=== PATIENT | female | born 1985 ===

== ENCOUNTER 2018-01-25 08:28 | Inpatient (IN) | payer MEDICAID, OTHER ==
[2018-01-25] MEDS ORDERED: Sodium Chloride 0.9% 1,000 ML IV STA (09:25)
--- NOTE | 2018-01-25 09:40 | ED PDOC ---
HPI: Abdomen Time Seen by Provider: 01/25/18 08:52 Chief Complaint (Nursing): Abdominal Pain Chief Complaint (Provider): Abdominal Pain History Per: Patient History/Exam Limitations: no limitations Onset/Duration Of Symptoms: Days (x2) Current Symptoms Are (Timing): Still Present Additional Complaint(s): 32 year old female presents to the ED with a complaint of abdominal pain associated with fever, burning urination and 2 episodes of vomiting ongoing for 2 days. She denies any hematuria or further medical complaints. PMD: none provided Past Medical History Reviewed: Historical Data, Nursing Documentation, Vital Signs Vital Signs: Last Vital Signs Temp 101.0 F H 01/25/18 12:06 Pulse 114 H 01/25/18 08:37 Resp 20 01/25/18 08:37 BP 125/80 01/25/18 08:37 Pulse Ox 98 01/25/18 11:59 - Medical History PMH: No Chronic Diseases - Surgical History Surgical History: (x3) - Family History Family History: States: Unknown Family Hx - Social History Current smoker - smoking cessation education provided: No Alcohol: None Drugs: Denies - Immunization History Hx Tetanus Toxoid Vaccination: No Hx Influenza Vaccination: No Hx Pneumococcal Vaccination: No - Home Medications Home Medications: Ambulatory Orders Medication Instructions Recorded No Known Home Med 01/25/18 - Allergies Allergies/Adverse Reactions: Allergies Allergy/AdvReac Type Severity Reaction Status Date / Time No Known Allergies Allergy Verified 01/25/18 08:37 Review of Systems ROS Statement: Except As Marked, All Systems Reviewed And Found Negative Constitutional: Positive for: Fever Gastrointestinal: Positive for: Vomiting (x2), Abdominal Pain Genitourinary Female: Positive for: Dysuria (burning). Negative for: Hematuria Physical Exam - Reviewed Nursing Documentation Reviewed: Yes Vital Signs Reviewed: Yes - Physical Exam Appears: Positive for: No Acute Distress Head Exam: Positive for: ATRAUMATIC, NORMAL INSPECTION, NORMOCEPHALIC Skin: Positive for: Normal Color Eye Exam: Positive for: Normal appearance ENT: Positive for: Normal ENT Inspection Neck: Positive for: Normal Cardiovascular/Chest: Positive for: Chest Non Tender, Tachycardia (but regular) Respiratory: Positive for: Normal Breath Sounds. Negative for: Respiratory Distress Pulses-Radial (L): 2+ Pulses-Radial (R): 2+ Gastrointestinal/Abdominal: Positive for: Soft, Tenderness (diffuse; significant in RUQ) Back: Positive for: R CVA Tenderness. Negative for: L CVA Tenderness Extremity: Positive for: Normal ROM (upper/lower). Negative for: Pedal Edema ( bilateral), Calf Tenderness (bilateral) Neurologic/Psych: Positive for: Alert, port patrol officer II-XII (grossly intact), Oriented. Negative for: Motor/Sensory Deficits - Laboratory Results Result Diagrams: 01/25/18 09:53 01/25/18 09:53 - ECG O2 Sat by Pulse Oximetry: 98 (RA) Pulse Ox Interpretation: Normal Medical Decision Making Medical Decision Making: Initial Impression: Abdominal pain; Fever Differential Diagnosis: Biliary disease; UTI; R/O sepsis Initial Plan: * VBG * CMP * Lipase * Urine dipstick * CBC * Morphine 4mg IVP * NS 1,000ml IV per 1,000mls/hr * Tylenol 650mg PO * Blood culture * Urine C&S * UA * US ABD Time: 0900 --Urine: negative for active disease and . Time: 1132 --US ABD FINDINGS: LIVER: Measures 17.2 cm in length. Nonspecific mildly inhomogeneous echogenicity of the liver parenchyma is identified. No definite mass. No intrahepatic bile duct dilatation. GALLBLADDER: Cholelithiasis identified within the gallbladder lumen with moderate mural thickening and mild pericholecystic fluid collection associated. Clinically correlate for possible cholecystitis as there is also a positive sonographic Lara sign. COMMON BILE DUCT: Measures 6.6 mm. No stones. No dilatation. PANCREAS: The tail of the pancreas is obscured by overlying bowel gas with remainder unremarkable. RIGHT KIDNEY: Measures 11.9 cm in length. Normal echogenicity. No calculus, mass, or hydronephrosis. AORTA: No aneurysmal dilatation. IVC: Unremarkable. OTHER FINDINGS: None . IMPRESSION: Pattern suspicious for cholecystitis. Cholelithiasis is noted with pericholecystic fluid, mural thickening and angie sonographic Lara sign as discussed above. Further clinical correlation is advised. The common bile duct is mildly dilated at 6.6 mm but no choledocholithiasis is demonstrated as imaged. There is incomplete imaging of the pancreas. Time: 1142 --Patient will require hospital admission for acute cholecystitis. --Surgical consult ordered for Dr. Hidalgo. technical operations vice president made aware of case. --Upon provider reevaluation, patient is medically stable and agreeable with plans. Time: 1157 --Discussed case with Dr. Hidalgo whom recommends to admit patient to hospitalist and agrees with management. Scribe Attestation: Documented by Ruchi Auguste, acting as a scribe for Rivas Bower MD. Provider Scribe Attestation: All medical record entries made by the Scribe were at my direction and personally dictated by me. I have reviewed the chart and agree that the record accurately reflects my personal performance of the history, physical exam, medical decision making, and the department course for this patient. I have also personally directed, reviewed, and agree with the discharge instructions and disposition. Disposition - Clinical Impression Clinical Impression: Abdominal pain, Acute cholecystitis, Sepsis - Patient ED Disposition Is Patient to be Admitted: Yes Discussed With : Master Zamora Doctor Will See Patient In The: ED Counseled Patient/Family Regarding: Studies Performed, Diagnosis - Disposition Disposition Time: 11:40 Condition: FAIR - Pt Status Changed To: Hospital Disposition Of: Inpatient - Admit Certification Admit to Inpatient:: After my assessment, the patient will require hospitalization for at least two midnights. This is because of the severity of symptoms shown, intensity of services needed, and/or the medical risk in this patient being treated as an outpatient. - POA Present On Arrival: None
[2018-01-25 10:02] LABS: BASO % 0.3 % (0.0-2.0); LYMPH # 0.8 K/uL (1.0-4.3); LYMPH % 4.6 % (20.0-40.0); MEAN CELL VOLUME 85.3 fl (81.0-99.0); MEAN CORPUSCULAR HEMOGLOBIN 29.8 pg (27.0-31.0); MEAN PLATELET VOLUME 8.1 fl (7.2-11.7); MONO # 1.1 K/uL (0.0-0.8); MONO % 6.9 % (0.0-10.0); NEUT # 14.6 K/uL (1.8-7.0); NEUT % 88.2 % (50.0-75.0); PLATELET COUNT 293 K/uL (130-400); RBC 4.36 Mil/uL (3.80-5.20); RED CELL DISTRIBUTION WIDTH 14.3 % (11.5-14.5); WHITE BLOOD COUNT 16.6 K/uL (4.8-10.8)
[2018-01-25 10:03] LABS: VENOUS BLOOD GAS BASE EXCESS -0.2 mmol/L (0.0-2.0); VENOUS BLOOD GAS PCO2 41 mmHg (40-60); VENOUS BLOOD GAS PO2 40 mm/Hg (30-55); VENOUS BLOOD PH 7.39 (7.32-7.43)
[2018-01-25 10:17] LABS: ALB/GLOB RATIO 1.2 (1.0-2.1); ALBUMIN 4.4 g/dL (3.5-5.0); ALT/SGPT 45 U/L (9-52); AST/SGOT 48 U/L (14-36); BLOOD UREA NITROGEN 7 mg/dl (7-17); CALCIUM 9.1 mg/dL (8.4-10.2); GFR AFRICAN-AMERICAN > 60; GFR NON-AFRICAN AMERICAN > 60; LIPASE 28 U/L (23-300)
[2018-01-25 10:39] LABS: BANDS 5 % (0-2); LYMPHOCYTE 9 % (20-50); MONOCYTE 8 % (0-10); NEUTROPHIL 78 % (42-75); TOTAL CELLS COUNTED 100
[2018-01-25 10:41] LABS: PLATELET ESTIMATE NORMAL (NORMAL)
[2018-01-25 11:07] LABS: SQUAMOUS EPITHIAL 15 /hpf (0-5); URINE BACTERIA RARE (<OCC); URINE BILIRUBIN NEGATIVE (NEGATIVE); URINE BLOOD SMALL (NEGATIVE); URINE CLARITY CLOUDY (Clear); URINE COLOR YELLOW (YELLOW); URINE GLUCOSE (UA) NEG (Normal); URINE LEUKOCYTE ESTERASE NEG Leu/uL (Negative); URINE PROTEIN 30 mg/dL (NEGATIVE); URINE UROBILINOGEN 0.2-1.0 mg/dL (0.2-1.0)
[2018-01-25] MEDS ORDERED: Piperacillin/Tazobact 3.375 GM in Sodium Chloride 0.9% 100 ML IVPB STA (11:20)
--- NOTE | 2018-01-25 11:33 | US ---
Date of service: 01/25/2018 HISTORY: RUQ pain COMPARISON: None. TECHNIQUE: Sonographic evaluation of the right upper quadrant of the abdomen. FINDINGS: LIVER: Measures 17.2 cm in length. Nonspecific mildly inhomogeneous echogenicity of the liver parenchyma is identified. No definite mass. No intrahepatic bile duct dilatation. GALLBLADDER: Cholelithiasis identified within the gallbladder lumen with moderate mural thickening and mild pericholecystic fluid collection associated. Clinically correlate for possible cholecystitis as there is also a positive sonographic Lara sign. COMMON BILE DUCT: Measures 6.6 mm. No stones. No dilatation. PANCREAS: The tail of the pancreas is obscured by overlying bowel gas with remainder unremarkable. RIGHT KIDNEY: Measures 11.9 cm in length. Normal echogenicity. No calculus, mass, or hydronephrosis. AORTA: No aneurysmal dilatation. IVC: Unremarkable. OTHER FINDINGS: None . IMPRESSION: Pattern suspicious for cholecystitis. Cholelithiasis is noted with pericholecystic fluid, mural thickening and angie sonographic Lara sign as discussed above. Further clinical correlation is advised. The common bile duct is mildly dilated at 6.6 mm but no choledocholithiasis is demonstrated as imaged. There is incomplete imaging of the pancreas.
[2018-01-25] MEDS ORDERED: Piperacillin/Tazobact 3.375 gm Inj IVPB ONE ×2 (11:54→18:57)
[2018-01-25] MEDS ORDERED: Lactated Ringer's 1,000 ML IV ONE (12:15)
--- NOTE | 2018-01-25 12:35 | CP.PCM.CON ---
History of Present Illness - History of Present Illness History of Present Illness: General Surgery Dr. Hidalgo 32 y/o F w/ no PMHx presents to the ED c/o RUQ abd pain. Pt reports pain yesterday ~1pm after eating spicy, greasy chicken. Pain localized to epigastric and RUQ. Pain is constant w/o radiation. Pt denies having had this pain in the past. Pt denies worsening pain 2/2 PO intake. Pt reports taking advil/motrin yesterday w/ no relief. Pt reports concurrent nausea and NBNB vomiting x2. Pt febrile in the ED but denies F/C, D/C, CP, SOB. PMHx: denies Meds: reviewed in chart NKDA PSHx: x3 SHx: denies tobacco, EtOH, drug use FHx: non-contributory Review of Systems - Review of Systems All systems: reviewed and no additional remarkable complaints except (see HPI) Past Patient History - Past Social History Alcohol: None Drugs: Denies - PSYCHIATRIC Hx Substance Use: No - SURGICAL HISTORY Hx Surgeries: No Hx Section: Yes (x3) - ANESTHESIA Hx Anesthesia: Yes Hx Anesthesia Reactions: No Meds Allergies/Adverse Reactions: Allergies Allergy/AdvReac Type Severity Reaction Status Date / Time No Known Allergies Allergy Verified 01/25/18 08:37 - Medications Medications: Current Medications Lactated Ringer's (Lactated Ringer's) 1,000 mls @ 125 mls/hr IV .Q8H JULIA Physical Exam - Constitutional Appears: Toxic, No Acute Distress - Head Exam Head Exam: NORMAL INSPECTION - Eye Exam Eye Exam: Normal appearance - ENT Exam ENT Exam: Mucous Membranes Moist - Respiratory Exam Respiratory Exam: NORMAL BREATHING PATTERN. absent: Accessory Muscle Use, Respiratory Distress - Cardiovascular Exam Cardiovascular Exam: Tachycardia, REGULAR RHYTHM. absent: Bradycardia - GI/Abdominal Exam GI & Abdominal Exam: Guarding (voluntary), Soft, Tenderness (RUQ/epigastric TTP) Additional comments: obese - Expanded GI/Abdominal Exam Expanded Expanded GI & Abdominal Exam: Lara's Sign - Extremities Exam Extremities exam: Positive for: normal inspection, pedal pulses present. Negative for: pedal edema - Neurological Exam Neurological exam: Alert, Oriented x3 - Psychiatric Exam Psychiatric exam: Normal Affect, Normal Mood - Skin Skin Exam: Diaphoretic, Intact, Normal Color, Warm Results - Vital Signs Recent Vital Signs: Last Vital Signs Temp 101.0 F H 01/25/18 12:06 Pulse 114 H 01/25/18 08:37 Resp 20 01/25/18 08:37 BP 125/80 01/25/18 08:37 Pulse Ox 98 01/25/18 11:59 - Labs Result Diagrams: 01/25/18 09:53 01/25/18 09:53 Labs: Laboratory Results - last 24 hr 01/25/18 01/25/18 01/25/18 09:53 09:53 09:54 WBC 16.6 H RBC 4.36 Hgb 13.0 Hct 37.2 MCV 85.3 MCH 29.8 MCHC 35.0 RDW 14.3 Plt Count 293 MPV 8.1 Neut % (Auto) 88.2 H Lymph % (Auto) 4.6 L [place] % (Auto) 6.9 Eos % (Auto) 0.0 Baso % (Auto) 0.3 Neut # (Auto) 14.6 H Lymph # (Auto) 0.8 L [place] # (Auto) 1.1 H Eos # (Auto) 0.0 Baso # (Auto) 0.0 Neutrophils % (Manual) 78 H Band Neutrophils % 5 H Lymphocytes % (Manual) 9 L Monocytes % (Manual) 8 Platelet Estimate Normal RBC Morphology Normal pO2 40 VBG pH 7.39 VBG pCO2 41 VBG HCO3 24.1 VBG Total CO2 26.1 VBG O2 Sat (Calc) 78.4 H VBG Base Excess -0.2 L VBG Potassium 4.0 Glucose 142 H Lactate 2.6 H FiO2 21.0 Sodium 137 134.0 Potassium 4.1 Chloride 100 100.0 Carbon Dioxide 22 Anion Gap 19 BUN 7 Creatinine 0.4 L Est GFR ( Amer) > 60 Est GFR (Non-Af Amer) > 60 Random Glucose 130 H Calcium 9.1 Total Bilirubin 0.9 AST 48 H ALT 45 Alkaline Phosphatase 67 Total Protein 8.0 Albumin 4.4 Globulin 3.6 Albumin/Globulin Ratio 1.2 Lipase 28 Venous Blood Potassium 4.0 Urine Color Urine Clarity Urine pH Ur Specific [place] Urine Protein Urine Glucose (UA) Urine Ketones Urine Blood Urine Nitrate Urine Bilirubin Urine Urobilinogen Ur Leukocyte Esterase Urine RBC (Auto) Urine Microscopic WBC Ur Squamous Epith Cells Urine Bacteria 01/25/18 10:39 WBC RBC Hgb Hct MCV MCH MCHC RDW Plt Count MPV Neut % (Auto) Lymph % (Auto) [place] % (Auto) Eos % (Auto) Baso % (Auto) Neut # (Auto) Lymph # (Auto) [place] # (Auto) Eos # (Auto) Baso # (Auto) Neutrophils % (Manual) Band Neutrophils % Lymphocytes % (Manual) Monocytes % (Manual) Platelet Estimate RBC Morphology pO2 VBG pH VBG pCO2 VBG HCO3 VBG Total CO2 VBG O2 Sat (Calc) VBG Base Excess VBG Potassium Glucose Lactate FiO2 Sodium Potassium Chloride Carbon Dioxide Anion Gap BUN Creatinine Est GFR ( Amer) Est GFR (Non-Af Amer) Random Glucose Calcium Total Bilirubin AST ALT Alkaline Phosphatase Total Protein Albumin Globulin Albumin/Globulin Ratio Lipase Venous Blood Potassium Urine Color Yellow Urine Clarity Cloudy Urine pH 6.0 Ur Specific [place] 1.026 Urine Protein 30 Urine Glucose (UA) Neg Urine Ketones Negative Urine Blood Small Urine Nitrate Negative Urine Bilirubin Negative Urine Urobilinogen 0.2-1.0 Ur Leukocyte Esterase Neg Urine RBC (Auto) 22 H Urine Microscopic WBC 4 Ur Squamous Epith Cells 15 H Urine Bacteria Rare - Imaging and Cardiology US - abdomen Status: Image reviewed by me, Report reviewed by me Assessment & Plan - Assessment and Plan (Free Text) Assessment: 32 y/o F w/ RUQ/epigastric abd pain 2/2 acute cholecystitis - NPO/IVF - IV Abx - pain management - anti-emetic - AM labs - OR this admission for lap herbert - encourage OOb to chair/Amb/IS use Pt discussed w/ Dr. Rocky Esparza DO PGY3
[2018-01-25 12:58] LABS: VENOUS BLOOD GAS BASE EXCESS 0.8 mmol/L (0.0-2.0); VENOUS BLOOD GAS PCO2 39 mmHg (40-60); VENOUS BLOOD GAS PO2 35 mm/Hg (30-55); VENOUS BLOOD PH 7.42 (7.32-7.43)
[2018-01-25] MEDS ORDERED: Sodium Chloride 0.9% 1,000 ML IV SCH (13:30)
--- NOTE | 2018-01-25 13:52 | CP.PCM.HP ---
History of Present Illness - History of Present Illness History of Present Illness: This is a 32 year old female with no significant past medical history who is presenting to the ED complaining of abdominal pain, nausea, and vomiting for two days. She states that the pain is worse in the right upper quadrant and is exacerbated by greasy food which she had yesterday. The pain radiates to the epigastrium. She has had 2 episodes of nb/nb emesis. In the ED she was found to have fever of 102.6, WBC of 16.6, and tachycardia at 115, qualifying her for sepsis. On Ultrasound there were findings of acute cholecystitis with cholelithiasis. She was given a liter of IV NS and started on Zosyn, as well as given analgesia and Tylenol for fever. She does have mild CBD dilatation on US but no findings of elevated liver transaminases or bilirubin elevation to suggest cholangitis at this time. The patient is being admitted to telemetry for further workup and for surgical evaluation by Dr. Hidalgo. Patient denies chest pain, shortness of breath, diarrhea, headache. All of the patient's questions were answered at the bedside. Present on Admission - Present on Admission Any Indicators Present on Admission: No History of DVT/PE: No History of Uncontrolled Diabetes: No Review of Systems - Review of Systems Review of Systems: A 12 point review of systems was conducted and found to be negative other than what was mentioned in the HPI. Past Patient History - Infectious Disease Hx of Infectious Diseases: None - Past Medical History & Family History Past Medical History?: No Past Family History: Reviewed and not pertinent - Past Social History Smoking Status: Never Smoked Alcohol: None Drugs: Denies - CARDIAC Hx Cardiac Disorders: No - PULMONARY Hx Respiratory Disorders: No - PSYCHIATRIC Hx Substance Use: No - SURGICAL HISTORY Hx Surgeries: No Hx Section: Yes (x3) - ANESTHESIA Hx Anesthesia: Yes Hx Anesthesia Reactions: No Meds Allergies/Adverse Reactions: Allergies Allergy/AdvReac Type Severity Reaction Status Date / Time No Known Allergies Allergy Verified 01/25/18 08:37 Physical Exam - Additional Findings Additional findings: Physical exam: Constitutional- cooperative, awake, alert Head- NCAT, PERRL Eye- PERRL, EOMI ENT- normal exam, MMM. Neck- normal inspection, supple, no JVD Respiratory- CTAB, no wheezes rales rhonchi Cardiovascular- RRR, +S1, +S2 no MRG GI/Abdominal- tenderness to URQ, hypoactive bowel sounds throughout, soft, no mass, no hsm Skin- warm, dry Extremities Exam- normal capillary refill, normal inspection Neurological Exam- alert, awake, oriented Psych- normal mood, normal affect Results - Vital Signs Recent Vital Signs: Last Vital Signs Temp 101.0 F H 01/25/18 12:06 Pulse 114 H 01/25/18 08:37 Resp 20 01/25/18 08:37 BP 125/80 01/25/18 08:37 Pulse Ox 98 01/25/18 13:10 - Labs Result Diagrams: 01/25/18 09:53 01/25/18 09:53 Labs: Laboratory Results - last 24 hr 01/25/18 01/25/18 01/25/18 09:53 09:53 09:54 WBC 16.6 H RBC 4.36 Hgb 13.0 Hct 37.2 MCV 85.3 MCH 29.8 MCHC 35.0 RDW 14.3 Plt Count 293 MPV 8.1 Neut % (Auto) 88.2 H Lymph % (Auto) 4.6 L [place] % (Auto) 6.9 Eos % (Auto) 0.0 Baso % (Auto) 0.3 Neut # (Auto) 14.6 H Lymph # (Auto) 0.8 L [place] # (Auto) 1.1 H Eos # (Auto) 0.0 Baso # (Auto) 0.0 Neutrophils % (Manual) 78 H Band Neutrophils % 5 H Lymphocytes % (Manual) 9 L Monocytes % (Manual) 8 Platelet Estimate Normal RBC Morphology Normal pO2 40 VBG pH 7.39 VBG pCO2 41 VBG HCO3 24.1 VBG Total CO2 26.1 VBG O2 Sat (Calc) 78.4 H VBG Base Excess -0.2 L VBG Potassium 4.0 Glucose 142 H Lactate 2.6 H FiO2 21.0 Sodium 137 134.0 Potassium 4.1 Chloride 100 100.0 Carbon Dioxide 22 Anion Gap 19 BUN 7 Creatinine 0.4 L Est GFR ( Amer) > 60 Est GFR (Non-Af Amer) > 60 Random Glucose 130 H Calcium 9.1 Total Bilirubin 0.9 AST 48 H ALT 45 Alkaline Phosphatase 67 Total Protein 8.0 Albumin 4.4 Globulin 3.6 Albumin/Globulin Ratio 1.2 Lipase 28 Venous Blood Potassium 4.0 Urine Color Urine Clarity Urine pH Ur Specific [place] Urine Protein Urine Glucose (UA) Urine Ketones Urine Blood Urine Nitrate Urine Bilirubin Urine Urobilinogen Ur Leukocyte Esterase Urine RBC (Auto) Urine Microscopic WBC Ur Squamous Epith Cells Urine Bacteria 01/25/18 01/25/18 10:39 12:01 WBC RBC Hgb Hct MCV MCH MCHC RDW Plt Count MPV Neut % (Auto) Lymph % (Auto) [place] % (Auto) Eos % (Auto) Baso % (Auto) Neut # (Auto) Lymph # (Auto) [place] # (Auto) Eos # (Auto) Baso # (Auto) Neutrophils % (Manual) Band Neutrophils % Lymphocytes % (Manual) Monocytes % (Manual) Platelet Estimate RBC Morphology pO2 35 VBG pH 7.42 VBG pCO2 39 L VBG HCO3 24.7 VBG Total CO2 26.5 VBG O2 Sat (Calc) 72.6 H VBG Base Excess 0.8 VBG Potassium 3.7 Glucose 135 H Lactate 1.4 FiO2 21.0 Sodium 133.0 Potassium Chloride 102.0 Carbon Dioxide Anion Gap BUN Creatinine Est GFR ( Amer) Est GFR (Non-Af Amer) Random Glucose Calcium Total Bilirubin AST ALT Alkaline Phosphatase Total Protein Albumin Globulin Albumin/Globulin Ratio Lipase Venous Blood Potassium 3.7 Urine Color Yellow Urine Clarity Cloudy Urine pH 6.0 Ur Specific [place] 1.026 Urine Protein 30 Urine Glucose (UA) Neg Urine Ketones Negative Urine Blood Small Urine Nitrate Negative Urine Bilirubin Negative Urine Urobilinogen 0.2-1.0 Ur Leukocyte Esterase Neg Urine RBC (Auto) 22 H Urine Microscopic WBC 4 Ur Squamous Epith Cells 15 H Urine Bacteria Rare Assessment & Plan - Assessment and Plan (Free Text) Plan: This is a 32 year old female with no significant past medical history who is presenting to the ED complaining of abdominal pain, nausea, and vomiting for two days. She states that the pain is worse in the right upper quadrant and is exacerbated by greasy food which she had yesterday. The pain radiates to the epigastrium. She has had 2 episodes of nb/nb emesis. In the ED she was found to have fever of 102.6, WBC of 16.6, and tachycardia at 115, qualifying her for sepsis. On Ultrasound there were findings of acute cholecystitis with cholelithiasis. She was given a liter of IV NS and started on Zosyn, as well as given analgesia and Tylenol for fever. She does have mild CBD dilatation on US but no findings of elevated liver transaminases or bilirubin elevation to suggest cholangitis at this time. The patient is being admitted to telemetry for further workup and for surgical evaluation by Dr. Hidalgo. Patient denies chest pain, shortness of breath, diarrhea, headache. All of the patient's questions were answered at the bedside. 1) Acute cholecystitis with sepsis - Admit to telemetry - Consultation with surgery, Dr. Hidalgo, will f/u recommendations - Continue hydration with LR at 125 cc/hour - Lactic acid improved, 2.6 -> 1.4 - Tylenol PRN for fever - Analgesia with morphine - NPO status - F/u cultures - Repeat labs in AM - Continue Zosyn for empiric coverage of gram negatives/ anaerobes 2) DVT prophylaxis - SCDs
[2018-01-25] MEDS ORDERED: Piperacillin/Tazobact 3.375 GM in Sodium Chloride 0.9% 100 ML IVPB SCH (16:00)
[2018-01-25] MEDS: HYDROmorphone 0.5 mg/0.5 ml ISec IVP PRN (20:43)
[2018-01-25] MEDS ORDERED: Lactated Ringer's 1,000 ML IV SCH (22:15)
[2018-01-26] MEDS: Piperacillin/Tazobact 3.375 GM in Sodium Chloride 0.9% 100 ML IVPB SCH ×4 (01:17→18:04)
[2018-01-26 06:11] LABS: BASO % 0.1 % (0.0-2.0); EOS % 0.1 % (0.0-4.0); LYMPH # 1.2 K/uL (1.0-4.3); LYMPH % 6.9 % (20.0-40.0); MEAN CELL VOLUME 86.1 fl (81.0-99.0); MEAN CORPUSCULAR HGB CONC 33.7 g/dL (33.0-37.0); MONO # 1.3 K/uL (0.0-0.8); MONO % 7.5 % (0.0-10.0); NEUT # 14.9 K/uL (1.8-7.0); NEUT % 85.4 % (50.0-75.0); RBC 4.16 Mil/uL (3.80-5.20); RED CELL DISTRIBUTION WIDTH 14.8 % (11.5-14.5); WHITE BLOOD COUNT 17.4 K/uL (4.8-10.8)
[2018-01-26 06:40] LABS: ALB/GLOB RATIO 1.1 (1.0-2.1); ALBUMIN 3.5 g/dL (3.5-5.0); ALT/SGPT 39 U/L (9-52); AST/SGOT 27 U/L (14-36); BLOOD UREA NITROGEN 5 mg/dl (7-17); CALCIUM 8.7 mg/dL (8.4-10.2); GFR AFRICAN-AMERICAN > 60; GFR NON-AFRICAN AMERICAN > 60
--- NOTE | 2018-01-26 10:30 | CP.PCM.PN ---
Subjective - Date & Time of Evaluation Date of Evaluation: 01/26/18 Time of Evaluation: 10:27 - Subjective Subjective: General Surgery Pt seen and examined this AM, reports she feels a little better today. (-) N/ V. She states she continues to have abdominal pain. Pt has remained NPO. Febrile, with t max 103.5 last night at 8:45pm. Labs and vitals noted. WBC elevated. PE Gen: Pt laying in bed in NAD. Obese Skin: warm and dry Cardio: s1s2 RRR Lungs: CTA bilaterally Abd: Soft, (+) RUQ tenderness, (+) epigastric tenderness, not distended Extr: (-) calf tenderness bilaterally A/P Acute cholecystitis Pt planned to go to OR today for lap herbert with possible open. Continue NPO Continue antibiotics Continue pain medications prn. Objective - Vital Signs/Intake and Output Vital Signs (last 24 hours): Temp Pulse Resp BP Pulse Ox 99.6 F 110 H 18 115/76 98 01/26/18 08:01 01/26/18 08:01 01/26/18 08:01 01/26/18 08:01 01/26/18 08:01 Intake and Output: 01/26/18 01/26/18 06:59 18:59 Intake Total 200 Balance 200 - Medications Medications: Current Medications Acetaminophen (Tylenol 325mg Tab) 650 mg PO Q4 PRN PRN Reason: Pain, Mild (1-3); fever >100.5 Last Admin: 01/25/18 20:44 Dose: 650 mg Hydromorphone HCl (Dilaudid) 0.5 mg IVP Q3 PRN PRN Reason: Pain, moderate (4-7) Stop: 01/27/18 12:40 Last Admin: 01/25/18 20:43 Dose: 0.5 mg Lactated Ringer's (Lactated Ringer's) 1,000 mls @ 500 mls/hr IV .Q2H JULIA Last Admin: 01/25/18 22:20 Dose: 500 mls/hr Piperacillin Sod/Tazobactam (Sod 3.375 gm/ Sodium Chloride) 100 mls @ 100 mls/ hr IVPB 0100,0700,1300,1900 JULIA PRN Reason: Protocol Last Admin: 01/26/18 06:39 Dose: 100 mls/hr Ondansetron HCl (Zofran Inj) 4 mg IVP Q4 PRN PRN Reason: Nausea/Vomiting - Labs Labs: 01/26/18 05:00 01/26/18 05:00
[2018-01-26] MEDS: Lactated Ringer's 500 ML IV SCH ×3 (12:52→21:30)
[2018-01-26 14:26] LABS: INR 1.7 (0.9-1.2); PARTIAL THROMBOPLASTIN TIME 28.7 Seconds (25.6-37.1); PROTHROMBIN TIME 18.6 Seconds (9.8-13.1)
[2018-01-26] MEDS ORDERED: Phytonadione 10 mg/ml Inj (Adult) SC ONE (17:09)
--- NOTE | 2018-01-26 17:14 | CP.PCM.PN ---
Subjective - Date & Time of Evaluation Date of Evaluation: 01/26/18 Time of Evaluation: 15:00 - Subjective Subjective: Patient was seen and examined at bedside. She continues to have pain, fevers, and chills. Appears more comfortable today at present however. For OR in AM Objective - Vital Signs/Intake and Output Vital Signs (last 24 hours): Temp Pulse Resp BP Pulse Ox 99.6 F 110 H 18 115/76 98 01/26/18 08:01 01/26/18 08:01 01/26/18 08:01 01/26/18 08:01 01/26/18 08:01 Intake and Output: 01/26/18 01/26/18 06:59 18:59 Intake Total 200 Balance 200 - Medications Medications: Current Medications Acetaminophen (Tylenol 325mg Tab) 650 mg PO Q4 PRN PRN Reason: Pain, Mild (1-3); fever >100.5 Last Admin: 01/25/18 20:44 Dose: 650 mg Hydromorphone HCl (Dilaudid) 0.5 mg IVP Q3 PRN PRN Reason: Pain, moderate (4-7) Stop: 01/27/18 12:40 Last Admin: 01/25/18 20:43 Dose: 0.5 mg Lactated Ringer's (Lactated Ringer's) 1,000 mls @ 500 mls/hr IV .Q2H JULIA Last Admin: 01/25/18 22:20 Dose: 500 mls/hr Piperacillin Sod/Tazobactam (Sod 3.375 gm/ Sodium Chloride) 100 mls @ 100 mls/ hr IVPB 0100,0700,1300,1900 JULIA PRN Reason: Protocol Last Admin: 01/26/18 06:39 Dose: 100 mls/hr Ondansetron HCl (Zofran Inj) 4 mg IVP Q4 PRN PRN Reason: Nausea/Vomiting - Labs Labs: 01/26/18 05:00 01/26/18 05:00 - Additional Findings Additional findings: Physical exam: Constitutional- cooperative, awake, alert Head- NCAT, PERRL Eye- PERRL, EOMI ENT- normal exam, MMM. Neck- normal inspection, supple, no JVD Respiratory- CTAB, no wheezes rales rhonchi Cardiovascular- RRR, +S1, +S2 no MRG GI/Abdominal- + Lara's sign, RUQ tenderness. Hypoactive bowel sounds, soft, no mass, no hsm Skin- warm, dry Extremities Exam- normal capillary refill, normal inspection Neurological Exam- alert, awake, oriented Psych- normal mood, normal affect Assessment and Plan - Assessment and Plan (Free Text) Plan: This is a 32 year old female with no significant past medical history who is presenting to the ED complaining of abdominal pain, nausea, and vomiting for two days. She states that the pain is worse in the right upper quadrant and is exacerbated by greasy food which she had the day previous to admission. The pain radiates to the epigastrium. She has had 2 episodes of nb/nb emesis. In the ED she was found to have fever of 102.6, WBC of 16.6, and tachycardia at 115 , qualifying her for sepsis. On Ultrasound there were findings of acute cholecystitis with cholelithiasis. She was given a liter of IV NS and started on Zosyn, as well as given analgesia and Tylenol for fever. She does have mild CBD dilatation on US but no findings of elevated liver transaminases or bilirubin elevation to suggest cholangitis at this time. The patient is being admitted to telemetry for further workup and for surgical evaluation by Dr. Hidalgo. Patient denies chest pain, shortness of breath, diarrhea, headache. All of the patient's questions were answered at the bedside. 1) Acute cholecystitis with secondary sepsis - Admit to telemetry - Consultation with surgery, Dr. Hidalgo, will f/u recommendations - Continue hydration with LR at 125 cc/hour - WBC increased to 17.4 today - Lactic acid improved, 2.6 -> 1.4 - Tylenol PRN for fever - Analgesia with Dilaudid - NPO status - F/u cultures, preliminary urine/blood cx negative - Repeat labs in AM - Continue Zosyn for empiric coverage of gram negatives/ anaerobes 2) Mildly elevated INR 1.7 - Give Vitamin K 10 mg SC once - Recheck INR in AM, if still elevated may need FFP as anesthesia states she should have INR < 1.5 for surgery 3) DVT prophylaxis - SCDs
[2018-01-26] MEDS: HYDROmorphone 0.5 mg/0.5 ml ISec IVP PRN (18:17)
[2018-01-27] MEDS: Piperacillin/Tazobact 3.375 GM in Sodium Chloride 0.9% 100 ML IVPB SCH ×3 (00:33→13:09)
[2018-01-27] MEDS: HYDROmorphone 0.5 mg/0.5 ml ISec IVP PRN ×2 (04:23→09:08)
[2018-01-27] MEDS: Lactated Ringer's 500 ML IV SCH ×4 (04:25→13:09)
[2018-01-27 05:29] LABS: HEMOGLOBIN 10.8 g/dL (12.0-16.0); MEAN CELL VOLUME 86.7 fl (81.0-99.0); MEAN CORPUSCULAR HEMOGLOBIN 29.6 pg (27.0-31.0); MEAN CORPUSCULAR HGB CONC 34.2 g/dL (33.0-37.0); RBC 3.65 Mil/uL (3.80-5.20); RED CELL DISTRIBUTION WIDTH 14.5 % (11.5-14.5); WHITE BLOOD COUNT 13.6 K/uL (4.8-10.8)
[2018-01-27 05:34] LABS: INR 1.5 (0.9-1.2)
[2018-01-27 06:36] LABS: ALBUMIN 3.2 g/dL (3.5-5.0); ALT/SGPT 31 U/L (9-52); AST/SGOT 19 U/L (14-36); BLOOD UREA NITROGEN 7 mg/dl (7-17); CALCIUM 8.3 mg/dL (8.4-10.2); GFR AFRICAN-AMERICAN > 60; GFR NON-AFRICAN AMERICAN > 60
[2018-01-27] MEDS: Potassium CL 10 MEQ/50 ML 50 ML IVPB SCH ×2 (10:39→11:50)
--- NOTE | 2018-01-27 10:44 | CP.PCM.PN ---
<Miladis Esparza - Last Filed: 01/27/18 10:42> Subjective - Date & Time of Evaluation Date of Evaluation: 01/27/18 Time of Evaluation: 10:42 - Subjective Subjective: General Surgery Dr. Man Pt S&E @bedside. Pt febrile overnight Tmax 102.6. reports abd pain, slightly improved. denies N/V, D/C. NPO. Objective - Vital Signs/Intake and Output Vital Signs (last 24 hours): Temp Pulse Resp BP Pulse Ox 98.6 F 93 H 18 114/68 96 01/27/18 07:56 01/27/18 07:56 01/27/18 07:56 01/27/18 07:56 01/27/18 07:56 - Medications Medications: Current Medications Acetaminophen (Tylenol 325mg Tab) 650 mg PO Q4 PRN PRN Reason: Pain, Mild (1-3); fever >100.5 Last Admin: 01/25/18 20:44 Dose: 650 mg Acetaminophen (Tylenol 650 Mg Supp) 650 mg IN Q6 PRN PRN Reason: Fever >100.4 F Last Admin: 01/26/18 13:26 Dose: 650 mg Hydromorphone HCl (Dilaudid) 0.5 mg IVP Q3 PRN PRN Reason: Pain, moderate (4-7) Stop: 01/27/18 12:40 Last Admin: 01/27/18 09:08 Dose: 0.5 mg Piperacillin Sod/Tazobactam (Sod 3.375 gm/ Sodium Chloride) 100 mls @ 100 mls/ hr IVPB 0100,0700,1300,1900 JULIA PRN Reason: Protocol Last Admin: 01/27/18 06:02 Dose: 100 mls/hr Lactated Ringer's (Lactated Ringer's 500ml) 500 mls @ 125 mls/hr IV .Q4H JULIA Last Admin: 01/27/18 09:08 Dose: 125 mls/hr Potassium Chloride (Potassium Cl 10meq/50ml Sterile Water) 50 mls @ 25 mls/hr IVPB Q1 JULIA Stop: 01/27/18 10:59 Ondansetron HCl (Zofran Inj) 4 mg IVP Q4 PRN PRN Reason: Nausea/Vomiting - Labs Labs: 01/27/18 04:20 01/27/18 04:20 PT 17.0 Seconds (9.8-13.1) H 01/27/18 04:20 INR 1.5 (0.9-1.2) H 01/27/18 04:20 APTT 28.7 Seconds (25.6-37.1) 01/26/18 13:50 - Constitutional Appears: Non-toxic, No Acute Distress - Head Exam Head Exam: NORMAL INSPECTION - Eye Exam Eye Exam: Normal appearance - ENT Exam ENT Exam: Mucous Membranes Moist - Respiratory Exam Respiratory Exam: NORMAL BREATHING PATTERN. absent: Accessory Muscle Use, Respiratory Distress - Cardiovascular Exam Cardiovascular Exam: REGULAR RHYTHM. absent: Bradycardia, Tachycardia - GI/Abdominal Exam GI & Abdominal Exam: Guarding (voluntary), Soft, Tenderness (RUQ). absent: Distended (obese), Firm, Rigid, Rebound - Extremities Exam Extremities Exam: Normal Inspection - Neurological Exam Neurological Exam: Alert, Awake, Oriented x3 - Psychiatric Exam Psychiatric exam: Normal Affect, Normal Mood - Skin Skin Exam: Dry, Intact, Normal Color, Warm Assessment and Plan - Assessment and Plan (Free Text) Assessment: 32 y/o F w/ acute cholecystitis - maintain NPO, IVF - cont IV Abx - cont pain management - replete electrolytes PRN - encourage OOB to chair/Amb/IS use - OR closed due to sterility concerns - Family requesting transfer to [facility] for surgery Pt seen, examined, and discussed w/ Dr. Donovan Esparza DO PGY3 <Corey Man - Last Filed: 01/27/18 11:03> Subjective - Subjective Subjective: Patient was seen and examined at the bedside. Agree with resident's note above. Objective - Vital Signs/Intake and Output Vital Signs (last 24 hours): Temp Pulse Resp BP Pulse Ox 98.6 F 93 H 18 114/68 96 01/27/18 07:56 01/27/18 07:56 01/27/18 07:56 01/27/18 07:56 01/27/18 07:56 - Medications Medications: Current Medications Acetaminophen (Tylenol 325mg Tab) 650 mg PO Q4 PRN PRN Reason: Pain, Mild (1-3); fever >100.5 Last Admin: 01/25/18 20:44 Dose: 650 mg Acetaminophen (Tylenol 650 Mg Supp) 650 mg IN Q6 PRN PRN Reason: Fever >100.4 F Last Admin: 01/26/18 13:26 Dose: 650 mg Hydromorphone HCl (Dilaudid) 0.5 mg IVP Q3 PRN PRN Reason: Pain, moderate (4-7) Stop: 01/27/18 12:40 Last Admin: 01/27/18 09:08 Dose: 0.5 mg Piperacillin Sod/Tazobactam (Sod 3.375 gm/ Sodium Chloride) 100 mls @ 100 mls/ hr IVPB 0100,0700,1300,1900 JUILA PRN Reason: Protocol Last Admin: 01/27/18 06:02 Dose: 100 mls/hr Lactated Ringer's (Lactated Ringer's 500ml) 500 mls @ 125 mls/hr IV .Q4H [facility] Last Admin: 01/27/18 09:08 Dose: 125 mls/hr Potassium Chloride (Potassium Cl 10meq/50ml Sterile Water) 50 mls @ 25 mls/hr IVPB Q1 [facility] Stop: 01/27/18 10:59 Ondansetron HCl (Zofran Inj) 4 mg IVP Q4 PRN PRN Reason: Nausea/Vomiting - Labs Labs: 01/27/18 04:20 01/27/18 04:20 PT 17.0 Seconds (9.8-13.1) H 01/27/18 04:20 INR 1.5 (0.9-1.2) H 01/27/18 04:20 APTT 28.7 Seconds (25.6-37.1) 01/26/18 13:50
--- NOTE | 2018-01-27 12:23 | CP.PCM.DIS ---
Provider - Provider Date of Admission: 01/25/18 11:44 Attending physician: Nic Zamora DO Consults: Dr Man Time Spent in preparation of Discharge (in minutes): 25 Diagnosis - Discharge Diagnosis (1) Sepsis Status: Acute Comment: secondary to acute cholecystitis. afebrile with stable vital sign since this morning (2) Acute cholecystitis Status: Acute Comment: [place] [facility] [place] was medically cleared for [place] Hospital Course - Lab Results Lab Results: Micro Results 01/25/18 09:53 Blood-Venous Blood Culture - Preliminary NO GROWTH AFTER 48 HOURS 01/25/18 10:39 Urine,Clean Catch Urine Culture - Final No Growth (<1,000 CFU/ML) Most Recent Lab Values WBC 13.6 K/uL (4.8-10.8) H 01/27/18 04:20 RBC 3.65 Mil/uL (3.80-5.20) L 01/27/18 04:20 Hgb 10.8 g/dL (12.0-16.0) L 01/27/18 04:20 Hct 31.6 % (34.0-47.0) L 01/27/18 04:20 MCV 86.7 fl (81.0-99.0) 01/27/18 04:20 MCH 29.6 pg (27.0-31.0) 01/27/18 04:20 MCHC 34.2 g/dL (33.0-37.0) 01/27/18 04:20 RDW 14.5 % (11.5-14.5) 01/27/18 04:20 Plt Count 229 K/uL (130-400) 01/27/18 04:20 MPV 8.0 fl (7.2-11.7) 01/26/18 05:00 Neut % (Auto) 85.4 % (50.0-75.0) H 01/26/18 05:00 Lymph % (Auto) 6.9 % (20.0-40.0) L 01/26/18 05:00 [place] % (Auto) 7.5 % (0.0-10.0) 01/26/18 05:00 Eos % (Auto) 0.1 % (0.0-4.0) 01/26/18 05:00 Baso % (Auto) 0.1 % (0.0-2.0) 01/26/18 05:00 Neut # (Auto) 14.9 K/uL (1.8-7.0) H 01/26/18 05:00 Lymph # (Auto) 1.2 K/uL (1.0-4.3) 01/26/18 05:00 [place] # (Auto) 1.3 K/uL (0.0-0.8) H 01/26/18 05:00 Eos # (Auto) 0.0 K/uL (0.0-0.7) 01/26/18 05:00 Baso # (Auto) 0.0 K/uL (0.0-0.2) 01/26/18 05:00 Neutrophils % (Manual) 78 % (42-75) H 01/25/18 09:53 Band Neutrophils % 5 % (0-2) H 01/25/18 09:53 Lymphocytes % (Manual) 9 % (20-50) L 01/25/18 09:53 Monocytes % (Manual) 8 % (0-10) 01/25/18 09:53 Platelet Estimate Normal (NORMAL) 01/25/18 09:53 RBC Morphology Normal (NORMAL) 01/25/18 09:53 PT 17.0 Seconds (9.8-13.1) H 01/27/18 04:20 INR 1.5 (0.9-1.2) H 01/27/18 04:20 APTT 28.7 Seconds (25.6-37.1) 01/26/18 13:50 pO2 35 mm/Hg (30-55) 01/25/18 12:01 VBG pH 7.42 (7.32-7.43) 01/25/18 12:01 VBG pCO2 39 mmHg (40-60) L 01/25/18 12:01 VBG HCO3 24.7 mmol/L 01/25/18 12:01 VBG Total CO2 26.5 mmol/L (22-28) 01/25/18 12:01 VBG O2 Sat (Calc) 72.6 % (40-65) H 01/25/18 12:01 VBG Base Excess 0.8 mmol/L (0.0-2.0) 01/25/18 12:01 VBG Potassium 3.7 mmol/L (3.6-5.2) 01/25/18 12:01 Sodium 133.0 mmol/L (132-148) 01/25/18 12:01 Chloride 102.0 mmol/L (98-107) 01/25/18 12:01 Glucose 135 mg/dL (65-105) H 01/25/18 12:01 Lactate 1.4 mmol/L (0.7-2.1) 01/25/18 12:01 FiO2 21.0 % 01/25/18 12:01 Sodium 137 mmol/l (132-148) 01/27/18 04:20 Potassium 3.5 MMOL/L (3.6-5.0) L 01/27/18 04:20 Chloride 105 mmol/L (98-107) 01/27/18 04:20 Carbon Dioxide 22 mmol/L (22-30) 01/27/18 04:20 Anion Gap 14 (10-20) 01/27/18 04:20 BUN 7 mg/dl (7-17) 01/27/18 04:20 Creatinine 0.5 mg/dl (0.7-1.2) L 01/27/18 04:20 Est GFR ( Amer) > 60 01/27/18 04:20 Est GFR (Non-Af Amer) > 60 01/27/18 04:20 Random Glucose 95 mg/dL (65-105) 01/27/18 04:20 Calcium 8.3 mg/dL (8.4-10.2) L 01/27/18 04:20 Total Bilirubin 0.8 mg/dl (0.2-1.3) 01/27/18 04:20 AST 19 U/L (14-36) 01/27/18 04:20 ALT 31 U/L (9-52) 01/27/18 04:20 Alkaline Phosphatase 72 U/L (38-126) 01/27/18 04:20 Total Protein 6.5 G/DL (6.3-8.2) 01/27/18 04:20 Albumin 3.2 g/dL (3.5-5.0) L 01/27/18 04:20 Globulin 3.2 gm/dL (2.2-3.9) 01/27/18 04:20 Albumin/Globulin Ratio 1.0 (1.0-2.1) 01/27/18 04:20 Lipase 28 U/L (23-300) 01/25/18 09:53 Venous Blood Potassium 3.7 mmol/L (3.6-5.2) 01/25/18 12:01 Urine Color Yellow (YELLOW) 01/25/18 10:39 Urine Clarity Cloudy (Clear) 01/25/18 10:39 Urine pH 6.0 (5.0-8.0) 01/25/18 10:39 Ur Specific [place] 1.026 (1.003-1.030) 01/25/18 10:39 Urine Protein 30 mg/dL (NEGATIVE) 01/25/18 10:39 Urine Glucose (UA) Neg mg/dL (Normal) 01/25/18 10:39 Urine Ketones Negative mg/dL (NEGATIVE) 01/25/18 10:39 Urine Blood Small (NEGATIVE) 01/25/18 10:39 Urine Nitrate Negative (NEGATIVE) 01/25/18 10:39 Urine Bilirubin Negative (NEGATIVE) 01/25/18 10:39 Urine Urobilinogen 0.2-1.0 mg/dL (0.2-1.0) 01/25/18 10:39 Ur Leukocyte Esterase Neg Dom/uL (Negative) 01/25/18 10:39 Urine RBC (Auto) 22 /hpf (0-3) H 01/25/18 10:39 Urine Microscopic WBC 4 /hpf (0-5) 01/25/18 10:39 Ur Squamous Epith Cells 15 /hpf (0-5) H 01/25/18 10:39 Urine Bacteria Rare (<OCC) 01/25/18 10:39 Blood Type O POSITIVE 01/26/18 18:01 Blood Type Confirm O POSITIVE 01/26/18 19:35 Antibody Screen Negative 01/26/18 18:01 BBK History Checked No verified bt 01/26/18 18:01 - Hospital Course Hospital Course: 32 yo female with no significant PMH was admitted with RUQ pain associated with nausea, vomiting and fever on 01/25/18. US showed acute cholecystitis with cholelithiasis. Patient was started on IV Zosyn and was scheduled for surgery today with surgical service of Dr Man however OR was closed today because of sterility concern. It was decided that [place] [facility] [place] surgical service over there. Patient was endorsed to Dr Pires who will admit patient and will refer patient to surgical service over there. Patient was discharged in stable condition and for transfer to [facility]. Discharge Exam - Head Exam Head Exam: NORMAL INSPECTION - Eye Exam Eye Exam: absent: Scleral icterus - ENT Exam ENT Exam: Mucous Membranes Moist - Respiratory Exam Respiratory Exam: absent: Rales, Rhonchi, Wheezes, Respiratory Distress - Cardiovascular Exam Cardiovascular Exam: REGULAR RHYTHM, +S1, +S2 - GI/Abdominal Exam GI & Abdominal Exam: Soft, Tenderness (tenderness on RUQ on palpation) - Rectal Exam Rectal Exam: Deferred - Back Exam Back exam: NORMAL INSPECTION - Neurological Exam Neurological exam: Alert, Oriented x3 - Psychiatric Exam Psychiatric exam: Normal Affect - Skin Skin Exam: Dry, Intact Discharge Plan - Discharge Medications Prescriptions: Piperacillin Sodium/Tazobactam [Zosyn 3.375 Gram Vial] 3.375 gm IV Q6 #8 vial - Follow Up Plan Condition: FAIR Disposition: Trans to Other Acute Care Hosp
[2018-01-27 12:36] VITALS: PULSE 87; O2SAT 98
[2018-01-27] MEDS ORDERED: Phytonadione 10 mg/ml Inj (Adult) SC ONE (13:30)
[2018-01-27] MEDS ORDERED: HYDROmorphone 0.5 mg/0.5 ml ISec IVP STA (14:49)
[2018-01-27 15:36] VITALS: BP 103/68; RESP 20
[2018-01-27 16:30] VITALS: TEMP 100
== END 2018-01-27 17:00 | disposition short-term general hospital (02) | DRG 872 ==
LOC: H.ER 08:28 → H.ERHOLD 11:44 → H.TEL 01-26 00:26
PROVIDERS: ADMIT Internal Medicine; ATTEND Internal Medicine
DX: A41.9 Sepsis, unspecified organism (principal); K80.00 Calculus of gallbladder with acute cholecystitis without obstruction; R79.1 Abnormal coagulation profile; Z53.8 Procedure and treatment not carried out for other reasons; K83.8 Other specified diseases of biliary tract